=== PATIENT | female | born 1990 | race Caucasian/White ===

== ENCOUNTER 2025-01-22 09:18 | Inpatient (IN) ==
[2025-01-22] MEDS ORDERED: SODIUM CHLORIDE 0.9% 100 ML IV PRN (09:59)
[2025-01-22] MEDS ORDERED: OXYTOCIN 30 UNITS/NSS 30 UNITS/500 ML BAG IV PRN (10:06)
[2025-01-22] MEDS ORDERED: LIDOCAINE 1% LOCAL 20 ML VIAL INFIL PRN (10:06)
--- NOTE | 2025-01-22 10:09 | Labor Progress Brief Note ---
Date of Service January 22, 2025 Subjective ROM at home at 0530 Ctx began at 0630 Was scheduled for IOL today, but presented in labor. Interested in epidural. Assessment & Plan (1) GBS carrier: Plan: PCN (2) Normal labor: Plan: Likely to need augmentation given ctx pattern. Epidural on request. Admission and Anticipated Discharge Date Admission Date: January 22, 2025 Physical Exam Genitourinary: /-2 LOF clear with vernix in it FHT Cat 1 [place] Q7 Results & Data Vital Signs (Past 12 Hours) Vital Signs Temp Pulse Resp BP 01/22/25 09:35 98.6 F 71 20 138/79 01/22/25 09:32 98.6 F 71 20 138/79 Coding Level of Care Code None Diagnoses GBS carrier Z22.330 Normal labor O80; Z37.9
[2025-01-22] MEDS: LACTATED RINGER'S 1,000 ML IV PRN (11:05)
[2025-01-22] MEDS: PENICILLIN GK 6 MU in DEXTROSE 5% 250 ML IV STA (11:07)
[2025-01-22 11:32] LABS: Hematocrit (blood only) 36.6 % (37.0-47.0); Hemoglobin 12.5 g/dl (12.0-16.0); Mean Corpuscular Hemoglobin 29.3 pg (25.0-34.0); Mean Corpuscular Volume 85.9 fL (80.0-100.0); Platelet Count 227 K/uL (130-400); RDW Standard Deviation 38.5 fL (36.4-46.3); Red Blood Count 4.26 M/uL (4.20-5.40); White Blood Count 9.02 K/ul (4.8-10.8)
[2025-01-22] MEDS ORDERED: NALOXONE HCL 0.4 MG/1 ML VIAL/CARP IV PRN ×2 (12:01→22:51)
[2025-01-22] MEDS ORDERED: LIDOCAINE 2% MPF LOCAL 5 ML VIAL EPI PRN (12:01)
[2025-01-22] MEDS ORDERED: NALOXONE HCL 1 MG in SODIUM CHLORIDE 0.9% 1,000 ML IV PRN ×2 (12:01→22:51)
[2025-01-22] MEDS ORDERED: diphenhydrAMINE 50 MG/ML VIAL IV PRN ×2 (12:01→22:51)
[2025-01-22] MEDS ORDERED: ONDANSETRON INJ 2 MG/ML 2 ML VIAL IV PRN ×2 (12:01→22:51)
[2025-01-22] MEDS ORDERED: ROPIVACAINE 0.5% PF 5 MG/ML 20 ML VIAL EPI PRN (12:01)
[2025-01-22] MEDS ORDERED: NALBUPHINE HCL INJ 10 MG/ML AMP IV PRN ×2 (12:01→22:51)
[2025-01-22] MEDS ORDERED: SODIUM CHLORIDE 0.9% PF INJ 10 ML VIAL EPI PRN (12:01)
[2025-01-22] MEDS: fentANYL 2 MCG/ML BUPIVacaine 0.125%-NSS 100ML BAG EPI PRN (12:15)
[2025-01-22] MEDS: BUPIVACAINE 0.25% PF 30 ML VIAL EPI PRN (12:16)
[2025-01-22] MEDS: LIDOCAINE 2%/EPINEPHRINE 1:200,000 20 ML PF EPI STA (12:16)
--- NOTE | 2025-01-22 12:16 | Anesthesiology Consultation ---
Date of Service January 22, 2025 Assessment & Plan (1) Encounter for pre-operative examination: Chart Review Chart Review: Patient NOT seen in Pre Admission Testing and Acceptable Risk for Labor Epidural Consults Requested none History Height/Weight Height: 5 ft 2 in Weight: 89.358 kg Allergies Allergy/AdvReac Type Severity Reaction Status Date / Time No Known Allergies Allergy Verified 01/21/25 10:53 Medications Home Medications Medication Instructions Recorded Confirmed Last Taken citalopram 20 mg tablet 20 mg PO DAILY 01/22/25 01/22/25 01/21/25 22:30 ferrous sulfate 325 mg (65 mg 325 mg PO Q OTHER DAY 01/22/25 01/22/25 01/20/25 22:30 iron) tablet (iron) vit no.95-ferrous 1 tab PO DAILY 01/22/25 01/22/25 01/21/25 22:30 fumarate 28 mg-folic acid 800 mcg tablet () Active Medications Generic Name Dose Route Start Last Admin Trade Name Freq PRN Reason Stop Dose Admin Fentanyl/Bupivacaine/Sodium Chlor 100 ml 01/22/25 12:01 01/22/25 12:15 Fentanyl 2 Mcg/Ml Bupivacaine 0.125%-Nss 100ml Bag EPI 01/23/25 12:00 100 ml PRN PRN Administration Pain R/T Labor Protocol Lactated Ringer's 1,000 mls @ 125 mls/hr 01/22/25 10:06 01/22/25 11:45 Lr IV 01/24/25 10:05 999 mls/hr .Q8H PRN Infusion L&D Protocol Protocol Past Medical History Medical History Chlamydia Past Family History Family History Grandmother (Maternal) Breast cancer Other Dyslipidemia Endometriosis Gestational diabetes Twin Denies family history of Ovarian cancer Prostate cancer Colorectal cancer Past Surgical History Surgical History S/P wisdom tooth extraction Social History Smoking Status: Never smoker Do You Dip or Chew Tobacco: No Hx Alcohol Use: No Hx Substance Use: No Physical Exam Vital Signs Last Vital Signs Temp 98.6 F 01/22/25 09:35 Pulse 92 H 01/22/25 12:13 Resp 20 01/22/25 09:35 BP 107/71 01/22/25 12:13 Pulse Ox 100 01/22/25 12:13 Testing Laboratory Results 01/22/25 11:11 Blood Type O Positive 01/22/25 11:11 Antibody Screen NEGATIVE 01/22/25 11:11
[2025-01-22] MEDS: OXYTOCIN 30 UNITS/NSS 30 UNITS/500 ML BAG IV PRN (14:00)
[2025-01-22] MEDS: PENICILLIN GK 3 MU in DEXTROSE 5% 100 ML IV PRN (14:36)
[2025-01-22] MEDS: BUPIVACAINE 0.25% PF 30 ML VIAL EPI STA (17:47)
[2025-01-22] MEDS: SODIUM CHLORIDE 0.9% PF INJ 10 ML VIAL EPI STA (17:47)
[2025-01-22] MEDS ORDERED: NURSING L&D Epidural Breakthrough Pain Update ONE (18:50)
[2025-01-22] MEDS ORDERED: LIDOCAINE 2%/EPINEPHRINE 1:200,000 20 ML PF ONE (19:22)
[2025-01-22] MEDS ORDERED: ROPIVACAINE 0.5% 5 MG/ML 30 ML VIAL ONE (19:22)
--- NOTE | 2025-01-22 19:27 | Anesthesia Procedure Note ---
Date of Service January 22, 2025 Anesthesia Epidural Re-Dose Vital Signs Temp Pulse Resp BP Pulse Ox 37.2 C 102 H 16 132/74 100 01/22/25 19:10 01/22/25 19:28 01/22/25 19:10 01/22/25 19:28 01/22/25 19:24 Notes Pain Intensity: 4 Dilatation (cm): 5.0 Effacement (%): 100 Called by nursing to evaluate epidural as the patient is having increased pain. The epidural was re-dosed with the following medications (all medications via epidural route) after negative aspiration of the epidural catheter for CSF/HEME 1.2% lidocaine and 0.2% ropivacaine 6ml After Epidural Re-Dose Mental Status: alert / awake / arousable Pain: improving with treatment Airway Patency, RR, SpO2: stable & adequate BP & HR: stable & adequate
[2025-01-22] MEDS ORDERED: LACTATED RINGER'S 1,000 ML IV SCH ×2 (21:45→23:16)
[2025-01-22] MEDS ORDERED: ACETAMINOPHEN 1000 MG/100 ML IV IV ONE (21:48)
[2025-01-22] MEDS ORDERED: AZITHROMYCIN 500 MG/255 ML BAG IV STA (21:51)
[2025-01-22] MEDS: ACETAMINOPHEN 1,000 MG/100 ML VIAL IV STA (21:53)
--- NOTE | 2025-01-22 21:53 | Labor Progress Brief Note ---
Date of Service January 22, 2025 Subjective Patient feeling a lot of pelvic pressure. Also feeling feverish/chills. Recent epidural bolus given due to the pressure, and hypotension resulted again which was treated. Since that point, tachycardia present to 170 baseline with mod billie +acc - dec, and toco Q3-4 despite pit @ 12. Maternal temp has elevated to 37.7 as well. I was notified of all the above by RN and came to the room to evaluate. Assessment & Plan (1) Failure of descent in labor, delivered, current hospitalization: Plan: Patient has no cervical dilation since last exam, and in fact is developing significant swelling of soft tissue suggesting CPD. She is also developing likely chorioamnionitis with elevation in maternal temp and tachycardia. After advising the patient of these new developments, we discussed options and agree the safest course of action is to proceed to section. Will administer 1g IV tylenol pre-op along with the ancef and azithromycin. If fever is documented postop we will treat with abx for 24hr, but often delivery is all that is needed to clear the nascent infection. Admission and Anticipated Discharge Date Admission Date: January 22, 2025 Physical Exam Genitourinary: 580/-1 with circumferential cervical sw elling and significant labial edema. This represents a "closing down" of the cervix compared to my own prior exam likely 2/2 edema. LOF clear [place] Q3-4 Results & Data Vital Signs (Past 12 Hours) Vital Signs Temp Pulse Resp BP Pulse Ox 01/22/25 21:44 100 01/22/25 21:44 102 H 01/22/25 21:40 88 L 01/22/25 21:40 102 H 01/22/25 21:40 111/70 01/22/25 21:39 100 01/22/25 21:39 97 H 01/22/25 21:34 100 01/22/25 21:34 103 H 01/22/25 21:29 100 01/22/25 21:29 105 H 01/22/25 21:26 99 H 01/22/25 21:26 103/55 L 01/22/25 21:24 100 01/22/25 21:24 97 H 01/22/25 21:19 100 01/22/25 21:19 93 H 01/22/25 21:15 93 01/22/25 21:15 102 H 01/22/25 21:14 94 01/22/25 21:14 101 H 01/22/25 21:12 90 01/22/25 21:12 109/58 L 01/22/25 21:09 99.9 F H 01/22/25 21:09 100 01/22/25 21:09 103 H 01/22/25 21:04 100 01/22/25 21:04 98 H 01/22/25 20:59 100 01/22/25 20:59 101 H 01/22/25 20:54 100 01/22/25 20:54 94 H 01/22/25 20:52 104 H 01/22/25 20:52 129/69 01/22/25 20:51 98.8 F 01/22/25 20:49 100 01/22/25 20:49 119 H 01/22/25 20:45 100 H 01/22/25 20:45 112/70 01/22/25 20:44 100 01/22/25 20:44 115 H 01/22/25 20:41 96 H 01/22/25 20:41 117/72 01/22/25 20:39 100 01/22/25 20:39 94 H 01/22/25 20:35 100 H 01/22/25 20:35 108/70 01/22/25 20:34 100 01/22/25 20:34 104 H 01/22/25 20:30 96 H 01/22/25 20:30 114/66 01/22/25 20:29 100 01/22/25 20:29 98 H 01/22/25 20:26 99 H 01/22/25 20:26 111/69 01/22/25 20:24 100 01/22/25 20:24 99 H 01/22/25 20:22 102 H 01/22/25 20:22 107/69 01/22/25 20:19 100 01/22/25 20:19 107 H 01/22/25 20:18 93 01/22/25 20:18 110 H 01/22/25 20:15 87 01/22/25 20:15 97/55 L 01/22/25 20:14 100 01/22/25 20:14 90 01/22/25 20:12 91 H 01/22/25 20:12 98/56 L 01/22/25 20:12 92 01/22/25 20:12 91 H 01/22/25 20:09 100 01/22/25 20:09 99 H 01/22/25 20:06 104 H 01/22/25 20:06 106/60 01/22/25 20:04 97 01/22/25 20:04 107 H 01/22/25 20:03 94 01/22/25 20:03 117 H 01/22/25 20:00 100 H 01/22/25 20:00 111/61 01/22/25 19:59 100 01/22/25 19:59 104 H 01/22/25 19:57 91 01/22/25 19:57 114 H 01/22/25 19:57 106 H 01/22/25 19:57 82/49 L 01/22/25 19:54 90 01/22/25 19:54 114 H 01/22/25 19:52 106 H 01/22/25 19:52 98/51 L 01/22/25 19:51 90 01/22/25 19:51 100 H 01/22/25 19:51 99/58 L 01/22/25 19:49 100 01/22/25 19:49 115 H 01/22/25 19:46 98 H 01/22/25 19:46 102/54 L 01/22/25 19:44 100 01/22/25 19:44 93 H 01/22/25 19:40 86 01/22/25 19:40 91/52 L 01/22/25 19:39 100 01/22/25 19:39 81 01/22/25 19:36 76 01/22/25 19:36 80/46 L 01/22/25 19:34 100 01/22/25 19:34 112 H 01/22/25 19:34 86/49 L 01/22/25 19:33 113 H 01/22/25 19:33 123/56 L 01/22/25 19:31 88 L 01/22/25 19:31 115 H 01/22/25 19:29 100 01/22/25 19:29 112 H 01/22/25 19:28 102 H 01/22/25 19:28 132/74 01/22/25 19:24 100 01/22/25 19:24 94 H 01/22/25 19:19 100 01/22/25 19:19 91 H 01/22/25 19:16 90 01/22/25 19:16 125/77 01/22/25 19:14 100 01/22/25 19:14 103 H 01/22/25 19:10 16 01/22/25 19:10 99.0 F 16 01/22/25 19:09 100 01/22/25 19:09 85 01/22/25 19:04 100 01/22/25 19:04 90 01/22/25 19:03 83 01/22/25 19:03 121/67 01/22/25 19:01 92 01/22/25 19:01 93 H 01/22/25 18:59 100 01/22/25 18:59 89 01/22/25 18:54 100 01/22/25 18:54 81 01/22/25 18:49 100 01/22/25 18:49 87 01/22/25 18:48 86 01/22/25 18:48 137/73 01/22/25 18:44 97 01/22/25 18:44 100 H 01/22/25 18:43 93 01/22/25 18:43 95 H 01/22/25 18:39 100 01/22/25 18:39 85 01/22/25 18:34 100 01/22/25 18:34 90 01/22/25 18:33 93 H 01/22/25 18:33 122/70 01/22/25 18:29 100 01/22/25 18:29 85 01/22/25 18:24 100 01/22/25 18:24 81 01/22/25 18:19 100 01/22/25 18:19 81 01/22/25 18:17 84 01/22/25 18:17 121/73 01/22/25 18:14 100 01/22/25 18:14 82 01/22/25 18:09 100 01/22/25 18:09 78 01/22/25 18:04 100 01/22/25 18:04 87 01/22/25 18:03 77 01/22/25 18:03 118/76 01/22/25 17:59 100 01/22/25 17:59 82 01/22/25 17:54 100 01/22/25 17:54 74 01/22/25 17:49 100 01/22/25 17:49 93 H 01/22/25 17:47 75 01/22/25 17:47 127/76 01/22/25 17:44 99 01/22/25 17:44 81 01/22/25 17:39 100 01/22/25 17:39 78 01/22/25 17:37 93 01/22/25 17:37 99 H 01/22/25 17:34 100 01/22/25 17:34 82 01/22/25 17:33 75 01/22/25 17:33 117/65 01/22/25 17:29 100 01/22/25 17:29 71 01/22/25 17:24 100 01/22/25 17:24 75 01/22/25 17:19 100 01/22/25 17:19 77 01/22/25 17:18 75 01/22/25 17:18 118/60 01/22/25 17:14 100 01/22/25 17:14 81 01/22/25 17:09 100 01/22/25 17:09 77 01/22/25 17:04 100 01/22/25 17:04 79 01/22/25 17:02 76 01/22/25 17:02 111/65 01/22/25 17:00 20 01/22/25 17:00 98.4 F 20 01/22/25 16:59 100 01/22/25 16:59 76 01/22/25 16:54 100 01/22/25 16:54 77 01/22/25 16:49 100 01/22/25 16:49 71 01/22/25 16:48 77 01/22/25 16:48 119/67 01/22/25 16:44 100 01/22/25 16:44 72 01/22/25 16:39 100 01/22/25 16:39 93 H 01/22/25 16:34 100 01/22/25 16:34 74 01/22/25 16:34 80 01/22/25 16:34 116/67 01/22/25 16:29 100 01/22/25 16:29 71 01/22/25 16:24 100 01/22/25 16:24 73 01/22/25 16:19 100 01/22/25 16:19 77 01/22/25 16:17 90 01/22/25 16:17 72 01/22/25 16:17 117/64 01/22/25 16:14 100 01/22/25 16:14 81 01/22/25 16:09 100 01/22/25 16:09 74 01/22/25 16:04 100 01/22/25 16:04 79 01/22/25 16:04 78 01/22/25 16:04 114/67 01/22/25 16:03 91 01/22/25 16:03 85 01/22/25 15:59 100 01/22/25 15:59 75 01/22/25 15:54 100 01/22/25 15:54 78 01/22/25 15:49 99 01/22/25 15:49 75 01/22/25 15:48 68 01/22/25 15:48 107/63 01/22/25 15:44 99 01/22/25 15:44 69 01/22/25 15:41 92 01/22/25 15:41 75 01/22/25 15:39 94 01/22/25 15:39 89 01/22/25 15:34 100 01/22/25 15:34 78 01/22/25 15:32 84 01/22/25 15:32 119/72 01/22/25 15:29 100 01/22/25 15:29 85 01/22/25 15:24 99 01/22/25 15:24 73 01/22/25 15:19 99 01/22/25 15:19 79 01/22/25 15:18 75 01/22/25 15:18 107/68 01/22/25 15:14 99 01/22/25 15:14 70 01/22/25 15:09 99 01/22/25 15:09 75 01/22/25 15:04 99 01/22/25 15:04 85 01/22/25 15:02 79 01/22/25 15:02 104/66 01/22/25 14:59 99 01/22/25 14:59 77 01/22/25 14:54 99 01/22/25 14:54 81 01/22/25 14:49 99 01/22/25 14:49 78 01/22/25 14:46 73 01/22/25 14:46 101/63 01/22/25 14:44 97 01/22/25 14:44 83 01/22/25 14:39 98 01/22/25 14:39 91 H 01/22/25 14:34 99 01/22/25 14:34 79 01/22/25 14:31 86 01/22/25 14:31 111/76 01/22/25 14:29 98 01/22/25 14:29 89 01/22/25 14:24 100 01/22/25 14:24 84 01/22/25 14:19 100 01/22/25 14:19 88 01/22/25 14:16 80 01/22/25 14:16 113/72 01/22/25 14:14 100 01/22/25 14:14 89 01/22/25 14:09 100 01/22/25 14:09 92 H 01/22/25 14:04 98 01/22/25 14:04 82 01/22/25 14:02 85 01/22/25 14:02 109/74 01/22/25 13:59 99 01/22/25 13:59 83 01/22/25 13:54 100 01/22/25 13:54 93 H 01/22/25 13:49 100 01/22/25 13:49 97 H 01/22/25 13:47 81 01/22/25 13:47 113/68 01/22/25 13:44 99 01/22/25 13:44 94 H 01/22/25 13:39 97 01/22/25 13:39 90 01/22/25 13:37 91 01/22/25 13:37 96 H 01/22/25 13:34 100 01/22/25 13:34 91 H 01/22/25 13:33 83 01/22/25 13:33 112/67 01/22/25 13:30 98.6 F 01/22/25 13:29 99 01/22/25 13:29 89 01/22/25 13:24 99 01/22/25 13:24 89 01/22/25 13:19 99 01/22/25 13:19 84 01/22/25 13:17 88 01/22/25 13:17 113/71 01/22/25 13:14 99 01/22/25 13:14 87 01/22/25 13:09 100 01/22/25 13:09 83 01/22/25 13:04 100 01/22/25 13:04 82 01/22/25 13:00 80 01/22/25 13:00 114/68 01/22/25 12:59 100 01/22/25 12:59 81 01/22/25 12:55 82 01/22/25 12:55 119/71 01/22/25 12:54 100 01/22/25 12:54 88 01/22/25 12:51 90 01/22/25 12:51 93 H 01/22/25 12:50 86 01/22/25 12:50 108/68 01/22/25 12:49 100 01/22/25 12:49 91 H 01/22/25 12:45 86 01/22/25 12:45 117/68 01/22/25 12:44 100 01/22/25 12:44 85 01/22/25 12:40 91 H 01/22/25 12:40 110/70 01/22/25 12:39 100 01/22/25 12:39 94 H 01/22/25 12:34 100 01/22/25 12:34 105 H 01/22/25 12:34 119/59 L 01/22/25 12:33 88 L 01/22/25 12:33 106 H 01/22/25 12:30 120 H 01/22/25 12:30 164/56 H 01/22/25 12:28 92 01/22/25 12:28 111 H 01/22/25 12:26 121 H 01/22/25 12:26 146/63 H 01/22/25 12:23 98 01/22/25 12:23 98 H 01/22/25 12:22 87/55 L 01/22/25 12:21 88 L 01/22/25 12:21 91 H 01/22/25 12:20 89 01/22/25 12:20 96/52 L 01/22/25 12:18 100 01/22/25 12:18 101 H 01/22/25 12:18 96 H 01/22/25 12:18 100/55 L 01/22/25 12:17 92 H 01/22/25 12:17 92/50 L 01/22/25 12:15 96 H 01/22/25 12:15 102/59 L 01/22/25 12:13 100 01/22/25 12:13 92 H 01/22/25 12:13 99 H 01/22/25 12:13 107/71 01/22/25 12:09 83 01/22/25 12:09 121/73 01/22/25 12:08 99 01/22/25 12:08 82 01/22/25 12:07 88 L 01/22/25 12:07 90 01/22/25 12:03 97 01/22/25 12:03 85 01/22/25 12:01 93 01/22/25 12:01 96 H 01/22/25 11:58 100 01/22/25 11:58 80 01/22/25 11:58 136/79 01/22/25 11:53 100 01/22/25 11:53 77 01/22/25 11:48 100 01/22/25 11:48 72 01/22/25 11:30 98.8 F 01/22/25 11:10 67 01/22/25 11:10 133/85 Coding Level of Care Code None Diagnoses Failure of descent in labor, delivered, current hospitalization O62.2
[2025-01-22] MEDS ORDERED: DEXAMETHASONE SOD INJ 4 MG/ML VIAL ONE (21:54)
[2025-01-22] MEDS ORDERED: OXYTOCIN 10 UNITS/ML VIAL ONE (21:54)
[2025-01-22] MEDS ORDERED: ONDANSETRON INJ 2 MG/ML 2 ML VIAL ONE (21:54)
[2025-01-22] MEDS ORDERED: METOCLOPRAMIDE HCL INJ 5 MG/ML 2 ML VIAL ONE (21:54)
[2025-01-22] MEDS: CITRIC ACID/SODIUM CITRATE 15 ML UDC PO STA (22:00)
[2025-01-22] MEDS: ceFAZolin 3000MG 3,000 MG/72.5 ML BAG IV STA (22:03)
[2025-01-22] MEDS ORDERED: MoRPHine SULFATE PF 1 MG/ML 10 ML AMP/VIAL ONE (22:25)
[2025-01-22] MEDS ORDERED: SODIUM CHLORIDE 0.9% PF INJ 10 ML VIAL ONE (22:40)
[2025-01-22] MEDS ORDERED: MoRPHine SULFATE PF 1 MG/ML 10 ML AMP/VIAL EPI ONE (22:51)
[2025-01-22] MEDS ORDERED: LACTATED RINGER'S 500 ML IV PRN (22:51)
[2025-01-22] MEDS ORDERED: PROMETHAZINE 6.25 MG/50.25 ML BAG IV PRN (22:51)
[2025-01-22] MEDS ORDERED: MoRPHine SULFATE 2 MG/ML CARP IV PRN (22:51)
[2025-01-22] MEDS ORDERED: DC INTRASPINAL MORPHINE SCH (23:00)
[2025-01-22] MEDS ORDERED: NO NARCOTICS OR SEDATIVES SCH (23:00)
[2025-01-22] MEDS ORDERED: SODIUM CHLORIDE 0.9% 1,000 ML IV SCH (23:00)
--- NOTE | 2025-01-22 23:03 | Operative Report ---
PG Post Operative Report Pre & Post Diagnosis Operation Date: 01/22/25 22:00 Pre-Op Diagnosis: 1. Failure to descend 2. Chorioamnionitis 3. SIUP @ 39w1d 4. Induction of Labor Post-Op Diagnosis: 1. Same 2. Delivery of live male child at 2228 I identified the patient and participated in the time-out.: Yes Procedure Operation Date: 01/22/25 22:00 Actual Procedures Primary Low Transverse Section Surgeon Tonia Marsh MD Test Lead Mckenna Arambula RN Estimated Blood Loss 628 Findings Consistent with Post-Op Diagnosis Specimens placenta, cord blood Anesthesia Type L&D Only Epidural Exists Complications none Disposition Accompanied Patient To Recovery: Yes Disposition: L&D Description of Procedure The patient was placed operating table in the supine position with a leftward tilt. She was prepped and draped in standard sterile fashion. The anesthetic was tested and found to be adequate. A time-out was held, identifying correct patient, procedure, positioning and preoperative antibiotics. There were no concerns. A Pfannenstiel skin incision was made with a knife and taken down to the underlying layer of fascia. The fascia was incised in the midline with the knife and taken out laterally with scissors. The superior edge of the fascial incision was grasped, elevated and dissected off the underlying rectus both superiorly and inferiorly. The muscles were bluntly in the midline. The peritoneum was entered bluntly. The incision was then stretched. The bladder retractor was placed. The vesicouterine peritoneum was identified, entered with scissors and taken out laterally with scissors. The bladder flap was created digitally. A hysterotomy incision was created transversely in the lower uterine segment, final entry being accomplished in a blunt manner with the recycling operator's fingers. Clear amniotic fluid was encountered. The recycling operator's hand was used to elevate the head to the hysterotomy. The head was delivered using mild fundal pressure, and the shoulders and body followed without difficulty. The cord was clamped and cut and the infant was then handed off to the awaiting assistant professor of communication. Cord blood was obtained. The placenta was Manually extracted. The uterus was exteriorized and cleared of all clot and debris with moistened laparotomy sponges. The hysterotomy incision was repaired in two layers, the first in a running locked layer, the second in an imbricating layer. The ovaries and tubes were seen to be normal bilaterally. The uterus was gently replaced in the abdomen, and the gutters were cleared of clot and debris. A final inspection of the hysterotomy revealed good hemostasis. The rectus muscles were allowed to reapproximate naturally. The fascia was then reapproximated with 1 Vicryl in a running nonlocked manner. The fascia was examined and found to be free of defect following closure. The subcutaneous tissue was copiously irrigated and reapproximated with 0-chromic, then the skin edges were closed with 4-0 monocryl in a subcuticular fashion. A dermabond dressing was applied. The de leon was found to be draining clear yellow urine at completion of the procedure. I attest to the content of the Intraoperative Record and any orders documented therein. Any exceptions are noted below. I attest to the content of the Intraoperative Record and any orders documented therein. Any exceptions are noted below. OB Procedure Charges 05085
--- NOTE | 2025-01-22 23:07 | Anesthesia Procedure Note ---
Date of Service January 22, 2025 Anesthesia Post Epidural Note Vital Signs Vital Signs: Temp Pulse Resp BP Pulse Ox 37.7 C H 118 H 16 117/66 100 01/22/25 21:09 01/22/25 22:09 01/22/25 19:10 01/22/25 22:09 01/22/25 22:09 Pain Intensity Bilateral Abdomen: Pain Intensity: 1 Notes Mental Status: alert / awake / arousable and participated in evaluation Nausea / Vomiting: adequately controlled Pain: adequately controlled Airway Patency, RR, SpO2: stable & adequate BP & HR: stable & adequate Hydration State: stable & adequate Neuraxial Anesthesia: was administered and sensory block is resolving Anesthetic Complications: no major complications apparent Epidural: Removed without complications and With tip intact
[2025-01-22] MEDS ORDERED: DIPHTHER/TETAN/PERTUS Vaccine (Tdap, Adol/Adult) 0.5mL IM ONE (23:16)
[2025-01-22] MEDS ORDERED: SENNA 8.6 MG TAB PO PRN (23:16)
[2025-01-22] MEDS ORDERED: BENZOCAINE 20% SPRY 85 APPLN/85 GM CAN EXT PRN (23:16)
[2025-01-22] MEDS ORDERED: CALCIUM CARBONATE 500 MG CHEWABLE TAB PO PRN (23:16)
[2025-01-22] MEDS ORDERED: MAGNESIUM HYDROXIDE SUSP 30 ML UDC PO PRN (23:16)
[2025-01-22] MEDS ORDERED: HYDROCORTISONE ACETATE 25 MG SUPP PR PRN (23:16)
[2025-01-22] MEDS: KETOROLAC 30 MG/ML VIAL ONE (23:44)
[2025-01-23] MEDS: CITALOPRAM 20 MG TAB PO SCH ×2 (00:25→21:41)
[2025-01-23] MEDS: OXYTOCIN 20 UNITS/LR 1,002 ML IV SCH (05:13)
--- NOTE | 2025-01-23 05:16 | Anesthesiology Progress Note ---
Date of Service January 23, 2025 Anesthesia Post Procedure Vital Signs Vital Signs: Temp Pulse Pulse Resp BP BP Pulse Ox 01/23/25 01:55 37 C 83 16 122/76 96 01/23/25 01:29 82 115/65 01/23/25 01:25 87 97 01/23/25 01:20 90 97 01/23/25 01:15 99 H 95 01/23/25 01:14 91 H 109/63 01/23/25 01:10 85 96 01/23/25 01:05 101 H 96 01/23/25 01:00 98 H 96 01/23/25 00:59 86 105/57 L 01/23/25 00:55 92 H 96 01/23/25 00:50 86 96 01/23/25 00:45 86 96 01/23/25 00:44 87 111/62 01/23/25 00:40 101 H 96 01/23/25 00:35 105 H 95 01/23/25 00:34 105 H 94 01/23/25 00:30 103 H 95 01/23/25 00:29 121/70 01/23/25 00:26 101 H 94 01/23/25 00:25 90 95 01/23/25 00:20 98 H 96 01/23/25 00:15 91 H 95 01/23/25 00:13 94 H 93 01/23/25 00:10 93 H 96 01/23/25 00:07 99 H 125/58 L 01/23/25 00:06 110 H 94 01/23/25 00:05 104 H 95 01/23/25 00:00 91 H 95 01/22/25 23:57 95 H 01/22/25 23:57 114/57 L 01/22/25 23:55 95 01/22/25 23:55 89 01/22/25 23:50 97 01/22/25 23:50 96 H 01/22/25 23:49 94 01/22/25 23:49 102 H 01/22/25 23:47 106 H 01/22/25 23:47 114/55 L 01/22/25 23:45 95 01/22/25 23:45 100 H 01/22/25 23:40 95 01/22/25 23:40 105 H 01/22/25 23:37 94 01/22/25 23:37 106 H 07/31/25 23:37 120/58 L 01/22/25 23:35 97 01/22/25 23:35 103 H 01/22/25 23:30 96 01/22/25 23:30 98 H 01/22/25 23:25 97 01/22/25 23:25 99 H 01/22/25 23:20 98 01/22/25 23:20 103 H 01/22/25 23:16 105 H 01/22/25 23:16 114/55 L 01/22/25 23:15 99 01/22/25 23:15 109 H 01/22/25 23:10 99 01/22/25 23:10 111 H 01/22/25 23:07 102 H 01/22/25 23:07 118/60 01/22/25 23:05 99 01/22/25 23:05 107 H 01/22/25 22:09 100 01/22/25 22:09 118 H 01/22/25 22:09 117/66 01/22/25 22:07 91 01/22/25 22:07 107 H 01/22/25 22:04 100 01/22/25 22:04 113 H 01/22/25 22:03 118 H 01/22/25 22:03 142/85 H 01/22/25 22:02 91 01/22/25 22:02 113 H 01/22/25 22:00 97 H 01/22/25 22:00 140/72 01/22/25 21:59 100 01/22/25 21:59 105 H 01/22/25 21:57 102 H 01/22/25 21:57 139/71 01/22/25 21:54 97 01/22/25 21:54 105 H 01/22/25 21:49 100 01/22/25 21:49 96 H 01/22/25 21:44 100 01/22/25 21:44 102 H 01/22/25 21:40 88 L 01/22/25 21:40 102 H 01/22/25 21:40 111/70 01/22/25 21:39 100 01/22/25 21:39 97 H 01/22/25 21:34 100 01/22/25 21:34 103 H 01/22/25 21:29 100 01/22/25 21:29 105 H 01/22/25 21:26 99 H 01/22/25 21:26 103/55 L 01/22/25 21:24 100 01/22/25 21:24 97 H 01/22/25 21:19 100 01/22/25 21:19 93 H 01/22/25 21:15 93 01/22/25 21:15 102 H 01/22/25 21:14 94 01/22/25 21:14 101 H 01/22/25 21:12 90 01/22/25 21:12 109/58 L 01/22/25 21:09 37.7 C H 01/22/25 21:09 100 01/22/25 21:09 103 H 01/22/25 21:04 100 01/22/25 21:04 98 H 01/22/25 20:59 100 01/22/25 20:59 101 H 01/22/25 20:54 100 01/22/25 20:54 94 H 01/22/25 20:52 104 H 01/22/25 20:52 129/69 01/22/25 20:51 37.1 C 01/22/25 20:49 100 01/22/25 20:49 119 H 01/22/25 20:45 100 H 01/22/25 20:45 112/70 01/22/25 20:44 100 01/22/25 20:44 115 H 01/22/25 20:41 96 H 01/22/25 20:41 117/72 01/22/25 20:39 100 01/22/25 20:39 94 H 01/22/25 20:35 100 H 01/22/25 20:35 108/70 01/22/25 20:34 100 01/22/25 20:34 104 H 01/22/25 20:30 96 H 01/22/25 20:30 114/66 01/22/25 20:29 100 01/22/25 20:29 98 H 01/22/25 20:26 99 H 01/22/25 20:26 111/69 01/22/25 20:24 100 01/22/25 20:24 99 H 01/22/25 20:22 102 H 01/22/25 20:22 107/69 01/22/25 20:19 100 01/22/25 20:19 107 H 01/22/25 20:18 93 01/22/25 20:18 110 H 01/22/25 20:15 87 01/22/25 20:15 97/55 L 01/22/25 20:14 100 01/22/25 20:14 90 01/22/25 20:12 91 H 01/22/25 20:12 98/56 L 01/22/25 20:12 92 01/22/25 20:12 91 H 01/22/25 20:09 100 01/22/25 20:09 99 H 01/22/25 20:06 104 H 01/22/25 20:06 106/60 01/22/25 20:04 97 01/22/25 20:04 107 H 01/22/25 20:03 94 01/22/25 20:03 117 H 01/22/25 20:00 100 H 01/22/25 20:00 111/61 01/22/25 19:59 100 01/22/25 19:59 104 H 01/22/25 19:57 91 01/22/25 19:57 114 H 01/22/25 19:57 106 H 01/22/25 19:57 82/49 L 01/22/25 19:54 90 01/22/25 19:54 114 H 01/22/25 19:52 106 H 01/22/25 19:52 98/51 L 01/22/25 19:51 90 01/22/25 19:51 100 H 01/22/25 19:51 99/58 L 01/22/25 19:49 100 01/22/25 19:49 115 H 01/22/25 19:46 98 H 01/22/25 19:46 102/54 L 01/22/25 19:44 100 01/22/25 19:44 93 H 01/22/25 19:40 86 01/22/25 19:40 91/52 L 01/22/25 19:39 100 01/22/25 19:39 81 01/22/25 19:36 76 01/22/25 19:36 80/46 L 01/22/25 19:34 100 01/22/25 19:34 112 H 01/22/25 19:34 86/49 L 01/22/25 19:33 113 H 01/22/25 19:33 123/56 L 01/22/25 19:31 88 L 01/22/25 19:31 115 H 01/22/25 19:29 100 01/22/25 19:29 112 H 01/22/25 19:28 102 H 01/22/25 19:28 132/74 01/22/25 19:24 100 01/22/25 19:24 94 H 01/22/25 19:19 100 01/22/25 19:19 91 H 01/22/25 19:16 90 01/22/25 19:16 125/77 01/22/25 19:14 100 01/22/25 19:14 103 H 01/22/25 19:10 16 01/22/25 19:10 37.2 C 16 01/22/25 19:09 100 01/22/25 19:09 85 01/22/25 19:04 100 01/22/25 19:04 90 01/22/25 19:03 83 01/22/25 19:03 121/67 01/22/25 19:01 92 01/22/25 19:01 93 H 01/22/25 18:59 100 01/22/25 18:59 89 01/22/25 18:54 100 01/22/25 18:54 81 01/22/25 18:49 100 01/22/25 18:49 87 01/22/25 18:48 86 01/22/25 18:48 137/73 01/22/25 18:44 97 01/22/25 18:44 100 H 01/22/25 18:43 93 01/22/25 18:43 95 H 01/22/25 18:39 100 01/22/25 18:39 85 01/22/25 18:34 100 01/22/25 18:34 90 01/22/25 18:33 93 H 01/22/25 18:33 122/70 01/22/25 18:29 100 01/22/25 18:29 85 01/22/25 18:24 100 01/22/25 18:24 81 01/22/25 18:19 100 01/22/25 18:19 81 01/22/25 18:17 84 01/22/25 18:17 121/73 01/22/25 18:14 100 01/22/25 18:14 82 01/22/25 18:09 100 01/22/25 18:09 78 01/22/25 18:04 100 01/22/25 18:04 87 01/22/25 18:03 77 01/22/25 18:03 118/76 01/22/25 17:59 100 01/22/25 17:59 82 01/22/25 17:54 100 01/22/25 17:54 74 01/22/25 17:49 100 01/22/25 17:49 93 H 01/22/25 17:47 75 01/22/25 17:47 127/76 01/22/25 17:44 99 01/22/25 17:44 81 01/22/25 17:39 100 01/22/25 17:39 78 01/22/25 17:37 93 01/22/25 17:37 99 H 01/22/25 17:34 100 01/22/25 17:34 82 01/22/25 17:33 75 01/22/25 17:33 117/65 01/22/25 17:29 100 01/22/25 17:29 71 01/22/25 17:24 100 01/22/25 17:24 75 01/22/25 17:19 100 01/22/25 17:19 77 01/22/25 17:18 75 01/22/25 17:18 118/60 01/22/25 17:14 100 01/22/25 17:14 81 01/22/25 17:09 100 01/22/25 17:09 77 01/22/25 17:04 100 01/22/25 17:04 79 01/22/25 17:02 76 01/22/25 17:02 111/65 01/22/25 17:00 20 01/22/25 17:00 36.9 C 20 01/22/25 16:59 100 01/22/25 16:59 76 01/22/25 16:54 100 01/22/25 16:54 77 01/22/25 16:49 100 01/22/25 16:49 71 01/22/25 16:48 77 01/22/25 16:48 119/67 01/22/25 16:44 100 01/22/25 16:44 72 01/22/25 16:39 100 01/22/25 16:39 93 H 01/22/25 16:34 100 01/22/25 16:34 74 01/22/25 16:34 80 01/22/25 16:34 116/67 01/22/25 16:29 100 01/22/25 16:29 71 01/22/25 16:24 100 01/22/25 16:24 73 01/22/25 16:19 100 01/22/25 16:19 77 01/22/25 16:17 90 01/22/25 16:17 72 01/22/25 16:17 117/64 01/22/25 16:14 100 01/22/25 16:14 81 01/22/25 16:09 100 01/22/25 16:09 74 01/22/25 16:04 100 01/22/25 16:04 79 01/22/25 16:04 78 01/22/25 16:04 114/67 01/22/25 16:03 91 01/22/25 16:03 85 01/22/25 15:59 100 01/22/25 15:59 75 01/22/25 15:54 100 01/22/25 15:54 78 01/22/25 15:49 99 01/22/25 15:49 75 01/22/25 15:48 68 01/22/25 15:48 107/63 01/22/25 15:44 99 01/22/25 15:44 69 01/22/25 15:41 92 01/22/25 15:41 75 01/22/25 15:39 94 01/22/25 15:39 89 01/22/25 15:34 100 01/22/25 15:34 78 01/22/25 15:32 84 01/22/25 15:32 119/72 01/22/25 15:29 100 01/22/25 15:29 85 01/22/25 15:24 99 01/22/25 15:24 73 01/22/25 15:19 99 01/22/25 15:19 79 01/22/25 15:18 75 01/22/25 15:18 107/68 01/22/25 15:14 99 01/22/25 15:14 70 01/22/25 15:09 99 01/22/25 15:09 75 01/22/25 15:04 99 01/22/25 15:04 85 01/22/25 15:02 79 01/22/25 15:02 104/66 01/22/25 14:59 99 01/22/25 14:59 77 01/22/25 14:54 99 01/22/25 14:54 81 01/22/25 14:49 99 01/22/25 14:49 78 01/22/25 14:46 73 01/22/25 14:46 101/63 01/22/25 14:44 97 01/22/25 14:44 83 01/22/25 14:39 98 01/22/25 14:39 91 H 01/22/25 14:34 99 01/22/25 14:34 79 01/22/25 14:31 86 01/22/25 14:31 111/76 01/22/25 14:29 98 01/22/25 14:29 89 01/22/25 14:24 100 01/22/25 14:24 84 01/22/25 14:19 100 01/22/25 14:19 88 01/22/25 14:16 80 01/22/25 14:16 113/72 01/22/25 14:14 100 01/22/25 14:14 89 01/22/25 14:09 100 01/22/25 14:09 92 H 01/22/25 14:04 98 01/22/25 14:04 82 01/22/25 14:02 85 01/22/25 14:02 109/74 01/22/25 13:59 99 01/22/25 13:59 83 01/22/25 13:54 100 01/22/25 13:54 93 H 01/22/25 13:49 100 01/22/25 13:49 97 H 01/22/25 13:47 81 01/22/25 13:47 113/68 01/22/25 13:44 99 01/22/25 13:44 94 H 01/22/25 13:39 97 01/22/25 13:39 90 01/22/25 13:37 91 01/22/25 13:37 96 H 01/22/25 13:34 100 01/22/25 13:34 91 H 01/22/25 13:33 83 01/22/25 13:33 112/67 01/22/25 13:30 37.0 C 01/22/25 13:29 99 01/22/25 13:29 89 01/22/25 13:24 99 01/22/25 13:24 89 01/22/25 13:19 99 01/22/25 13:19 84 01/22/25 13:17 88 01/22/25 13:17 113/71 01/22/25 13:14 99 01/22/25 13:14 87 01/22/25 13:09 100 01/22/25 13:09 83 01/22/25 13:04 100 01/22/25 13:04 82 01/22/25 13:00 80 01/22/25 13:00 114/68 01/22/25 12:59 100 01/22/25 12:59 81 01/22/25 12:55 82 01/22/25 12:55 119/71 01/22/25 12:54 100 01/22/25 12:54 88 01/22/25 12:51 90 01/22/25 12:51 93 H 01/22/25 12:50 86 01/22/25 12:50 108/68 01/22/25 12:49 100 01/22/25 12:49 91 H 01/22/25 12:45 86 01/22/25 12:45 117/68 01/22/25 12:44 100 01/22/25 12:44 85 01/22/25 12:40 91 H 01/22/25 12:40 110/70 01/22/25 12:39 100 01/22/25 12:39 94 H 01/22/25 12:34 100 01/22/25 12:34 105 H 01/22/25 12:34 119/59 L 01/22/25 12:33 88 L 01/22/25 12:33 106 H 01/22/25 12:30 120 H 01/22/25 12:30 164/56 H 01/22/25 12:28 92 01/22/25 12:28 111 H 01/22/25 12:26 121 H 01/22/25 12:26 146/63 H 01/22/25 12:23 98 01/22/25 12:23 98 H 01/22/25 12:22 87/55 L 01/22/25 12:21 88 L 01/22/25 12:21 91 H 01/22/25 12:20 89 01/22/25 12:20 96/52 L 01/22/25 12:18 100 01/22/25 12:18 101 H 01/22/25 12:18 96 H 01/22/25 12:18 100/55 L 01/22/25 12:17 92 H 01/22/25 12:17 92/50 L 01/22/25 12:15 96 H 01/22/25 12:15 102/59 L 01/22/25 12:13 100 01/22/25 12:13 92 H 01/22/25 12:13 99 H 01/22/25 12:13 107/71 01/22/25 12:09 83 01/22/25 12:09 121/73 01/22/25 12:08 99 01/22/25 12:08 82 01/22/25 12:07 88 L 01/22/25 12:07 90 01/22/25 12:03 97 01/22/25 12:03 85 01/22/25 12:01 93 01/22/25 12:01 96 H 01/22/25 11:58 100 01/22/25 11:58 80 01/22/25 11:58 136/79 01/22/25 11:53 100 01/22/25 11:53 77 01/22/25 11:48 100 01/22/25 11:48 72 01/22/25 11:30 37.1 C 01/22/25 11:10 67 01/22/25 11:10 133/85 01/22/25 09:35 37.0 C 71 20 138/79 01/22/25 09:32 37.0 C 71 20 138/79 O2 Del Method 01/23/25 01:55 Room Air 01/23/25 01:29 01/23/25 01:25 01/23/25 01:20 01/23/25 01:15 01/23/25 01:14 01/23/25 01:10 01/23/25 01:05 01/23/25 01:00 01/23/25 00:59 01/23/25 00:55 01/23/25 00:50 01/23/25 00:45 01/23/25 00:44 01/23/25 00:40 01/23/25 00:35 01/23/25 00:34 01/23/25 00:30 01/23/25 00:29 01/23/25 00:26 01/23/25 00:25 01/23/25 00:20 01/23/25 00:15 01/23/25 00:13 01/23/25 00:10 01/23/25 00:07 01/23/25 00:06 01/23/25 00:05 01/23/25 00:00 01/22/25 23:57 01/22/25 23:57 01/22/25 23:55 01/22/25 23:55 01/22/25 23:50 01/22/25 23:50 01/22/25 23:49 01/22/25 23:49 01/22/25 23:47 01/22/25 23:47 01/22/25 23:45 01/22/25 23:45 01/22/25 23:40 01/22/25 23:40 01/22/25 23:37 01/22/25 23:37 01/22/25 23:37 01/22/25 23:35 01/22/25 23:35 01/22/25 23:30 01/22/25 23:30 01/22/25 23:25 01/22/25 23:25 01/22/25 23:20 01/22/25 23:20 01/22/25 23:16 01/22/25 23:16 01/22/25 23:15 01/22/25 23:15 01/22/25 23:10 01/22/25 23:10 01/22/25 23:07 01/22/25 23:07 01/22/25 23:05 01/22/25 23:05 01/22/25 22:09 01/22/25 22:09 01/22/25 22:09 01/22/25 22:07 01/22/25 22:07 01/22/25 22:04 01/22/25 22:04 01/22/25 22:03 01/22/25 22:03 01/22/25 22:02 01/22/25 22:02 01/22/25 22:00 01/22/25 22:00 01/22/25 21:59 01/22/25 21:59 01/22/25 21:57 01/22/25 21:57 01/22/25 21:54 01/22/25 21:54 01/22/25 21:49 01/22/25 21:49 01/22/25 21:44 01/22/25 21:44 01/22/25 21:40 01/22/25 21:40 01/22/25 21:40 01/22/25 21:39 01/22/25 21:39 01/22/25 21:34 01/22/25 21:34 01/22/25 21:29 01/22/25 21:29 01/22/25 21:26 01/22/25 21:26 01/22/25 21:24 01/22/25 21:24 01/22/25 21:19 01/22/25 21:19 01/22/25 21:15 01/22/25 21:15 01/22/25 21:14 01/22/25 21:14 01/22/25 21:12 01/22/25 21:12 01/22/25 21:09 01/22/25 21:09 01/22/25 21:09 01/22/25 21:04 01/22/25 21:04 01/22/25 20:59 01/22/25 20:59 01/22/25 20:54 01/22/25 20:54 01/22/25 20:52 01/22/25 20:52 01/22/25 20:51 01/22/25 20:49 01/22/25 20:49 01/22/25 20:45 01/22/25 20:45 01/22/25 20:44 01/22/25 20:44 01/22/25 20:41 01/22/25 20:41 01/22/25 20:39 01/22/25 20:39 01/22/25 20:35 01/22/25 20:35 01/22/25 20:34 01/22/25 20:34 01/22/25 20:30 01/22/25 20:30 01/22/25 20:29 01/22/25 20:29 01/22/25 20:26 01/22/25 20:26 01/22/25 20:24 01/22/25 20:24 01/22/25 20:22 01/22/25 20:22 01/22/25 20:19 01/22/25 20:19 01/22/25 20:18 01/22/25 20:18 01/22/25 20:15 01/22/25 20:15 01/22/25 20:14 01/22/25 20:14 01/22/25 20:12 01/22/25 20:12 01/22/25 20:12 01/22/25 20:12 01/22/25 20:09 01/22/25 20:09 01/22/25 20:06 01/22/25 20:06 01/22/25 20:04 01/22/25 20:04 01/22/25 20:03 01/22/25 20:03 01/22/25 20:00 01/22/25 20:00 01/22/25 19:59 01/22/25 19:59 01/22/25 19:57 01/22/25 19:57 01/22/25 19:57 01/22/25 19:57 01/22/25 19:54 01/22/25 19:54 01/22/25 19:52 01/22/25 19:52 01/22/25 19:51 01/22/25 19:51 01/22/25 19:51 01/22/25 19:49 01/22/25 19:49 01/22/25 19:46 01/22/25 19:46 01/22/25 19:44 01/22/25 19:44 01/22/25 19:40 01/22/25 19:40 01/22/25 19:39 01/22/25 19:39 01/22/25 19:36 01/22/25 19:36 01/22/25 19:34 01/22/25 19:34 01/22/25 19:34 01/22/25 19:33 01/22/25 19:33 01/22/25 19:31 01/22/25 19:31 01/22/25 19:29 01/22/25 19:29 01/22/25 19:28 01/22/25 19:28 01/22/25 19:24 01/22/25 19:24 01/22/25 19:19 01/22/25 19:19 01/22/25 19:16 01/22/25 19:16 01/22/25 19:14 01/22/25 19:14 01/22/25 19:10 01/22/25 19:10 01/22/25 19:09 01/22/25 19:09 01/22/25 19:04 01/22/25 19:04 01/22/25 19:03 01/22/25 19:03 01/22/25 19:01 01/22/25 19:01 01/22/25 18:59 01/22/25 18:59 01/22/25 18:54 01/22/25 18:54 01/22/25 18:49 01/22/25 18:49 01/22/25 18:48 01/22/25 18:48 01/22/25 18:44 01/22/25 18:44 01/22/25 18:43 01/22/25 18:43 01/22/25 18:39 01/22/25 18:39 01/22/25 18:34 01/22/25 18:34 01/22/25 18:33 01/22/25 18:33 01/22/25 18:29 01/22/25 18:29 01/22/25 18:24 01/22/25 18:24 01/22/25 18:19 01/22/25 18:19 01/22/25 18:17 01/22/25 18:17 01/22/25 18:14 01/22/25 18:14 01/22/25 18:09 01/22/25 18:09 01/22/25 18:04 01/22/25 18:04 01/22/25 18:03 01/22/25 18:03 01/22/25 17:59 01/22/25 17:59 01/22/25 17:54 01/22/25 17:54 01/22/25 17:49 01/22/25 17:49 01/22/25 17:47 01/22/25 17:47 01/22/25 17:44 01/22/25 17:44 01/22/25 17:39 01/22/25 17:39 01/22/25 17:37 01/22/25 17:37 01/22/25 17:34 01/22/25 17:34 01/22/25 17:33 01/22/25 17:33 01/22/25 17:29 01/22/25 17:29 01/22/25 17:24 01/22/25 17:24 01/22/25 17:19 01/22/25 17:19 01/22/25 17:18 01/22/25 17:18 01/22/25 17:14 01/22/25 17:14 01/22/25 17:09 01/22/25 17:09 01/22/25 17:04 01/22/25 17:04 01/22/25 17:02 01/22/25 17:02 01/22/25 17:00 01/22/25 17:00 01/22/25 16:59 01/22/25 16:59 01/22/25 16:54 01/22/25 16:54 01/22/25 16:49 01/22/25 16:49 01/22/25 16:48 01/22/25 16:48 01/22/25 16:44 01/22/25 16:44 01/22/25 16:39 01/22/25 16:39 01/22/25 16:34 01/22/25 16:34 01/22/25 16:34 01/22/25 16:34 01/22/25 16:29 01/22/25 16:29 01/22/25 16:24 01/22/25 16:24 01/22/25 16:19 01/22/25 16:19 01/22/25 16:17 01/22/25 16:17 01/22/25 16:17 01/22/25 16:14 01/22/25 16:14 01/22/25 16:09 01/22/25 16:09 01/22/25 16:04 01/22/25 16:04 01/22/25 16:04 01/22/25 16:04 01/22/25 16:03 01/22/25 16:03 01/22/25 15:59 01/22/25 15:59 01/22/25 15:54 01/22/25 15:54 01/22/25 15:49 01/22/25 15:49 01/22/25 15:48 01/22/25 15:48 01/22/25 15:44 01/22/25 15:44 01/22/25 15:41 01/22/25 15:41 01/22/25 15:39 01/22/25 15:39 01/22/25 15:34 01/22/25 15:34 01/22/25 15:32 01/22/25 15:32 01/22/25 15:29 01/22/25 15:29 01/22/25 15:24 01/22/25 15:24 01/22/25 15:19 01/22/25 15:19 01/22/25 15:18 01/22/25 15:18 01/22/25 15:14 01/22/25 15:14 01/22/25 15:09 01/22/25 15:09 01/22/25 15:04 01/22/25 15:04 01/22/25 15:02 01/22/25 15:02 01/22/25 14:59 01/22/25 14:59 01/22/25 14:54 01/22/25 14:54 01/22/25 14:49 01/22/25 14:49 01/22/25 14:46 01/22/25 14:46 01/22/25 14:44 01/22/25 14:44 01/22/25 14:39 01/22/25 14:39 01/22/25 14:34 01/22/25 14:34 01/22/25 14:31 01/22/25 14:31 01/22/25 14:29 01/22/25 14:29 01/22/25 14:01/22/25 14:01/22/25 14:19 01/22/25 14:19 01/22/25 14:16 01/22/25 14:16 01/22/25 14:14 01/22/25 14:14 01/22/25 14:09 01/22/25 14:09 01/22/25 14:04 01/22/25 14:04 01/22/25 14:02 01/22/25 14:02 01/22/25 13:59 01/22/25 13:59 01/22/25 13:54 01/22/25 13:54 01/22/25 13:49 01/22/25 13:49 01/22/25 13:47 01/22/25 13:47 01/22/25 13:44 01/22/25 13:44 01/22/25 13:39 01/22/25 13:39 01/22/25 13:37 01/22/25 13:37 01/22/25 13:34 01/22/25 13:34 01/22/25 13:33 01/22/25 13:33 01/22/25 13:30 01/22/25 13:29 01/22/25 13:29 01/22/25 13:24 01/22/25 13:24 01/22/25 13:19 01/22/25 13:19 01/22/25 13:17 01/22/25 13:17 01/22/25 13:14 01/22/25 13:14 01/22/25 13:09 01/22/25 13:09 01/22/25 13:04 01/22/25 13:04 01/22/25 13:00 01/22/25 13:00 01/22/25 12:59 01/22/25 12:59 01/22/25 12:55 01/22/25 12:55 01/22/25 12:54 01/22/25 12:54 01/22/25 12:51 01/22/25 12:51 01/22/25 12:50 01/22/25 12:50 01/22/25 12:49 01/22/25 12:49 01/22/25 12:45 01/22/25 12:45 01/22/25 12:44 01/22/25 12:44 01/22/25 12:40 01/22/25 12:40 01/22/25 12:39 01/22/25 12:39 01/22/25 12:34 01/22/25 12:34 01/22/25 12:34 01/22/25 12:33 01/22/25 12:33 01/22/25 12:30 01/22/25 12:30 01/22/25 12:28 01/22/25 12:28 01/22/25 12:26 01/22/25 12:26 01/22/25 12:23 01/22/25 12:23 01/22/25 12:22 01/22/25 12:21 01/22/25 12:21 01/22/25 12:20 01/22/25 12:20 01/22/25 12:18 01/22/25 12:18 01/22/25 12:18 01/22/25 12:18 01/22/25 12:17 01/22/25 12:17 01/22/25 12:15 01/22/25 12:15 01/22/25 12:13 01/22/25 12:13 01/22/25 12:13 01/22/25 12:13 01/22/25 12:09 01/22/25 12:09 01/22/25 12:08 01/22/25 12:08 01/22/25 12:07 01/22/25 12:07 01/22/25 12:03 01/22/25 12:03 01/22/25 12:01 01/22/25 12:01 01/22/25 11:58 01/22/25 11:58 01/22/25 11:58 01/22/25 11:53 01/22/25 11:53 01/22/25 11:48 01/22/25 11:48 01/22/25 11:30 01/22/25 11:10 01/22/25 11:10 01/22/25 09:35 01/22/25 09:32 Pain Intensity Bilateral Abdomen: Pain Intensity: 1 Transfer of Care Handoff Completed per policy Notes Mental Status: alert / awake / arousable Patient Amnestic to Procedure: Yes Nausea / Vomiting: adequately controlled Pain: adequately controlled Airway Patency, RR, SpO2: stable & adequate BP & HR: stable & adequate Hydration State: stable & adequate Anesthetic Complications: no major complications apparent
[2025-01-23] MEDS: KETOROLAC 30 MG/ML VIAL IV SCH (05:20)
[2025-01-23] MEDS: ACETAMINOPHEN 325 MG TAB PO SCH (05:21)
[2025-01-23 06:45] LABS: Hematocrit (blood only) 31.0 % (37.0-47.0); Hemoglobin 11.0 g/dl (12.0-16.0); Immature Granulocytes # (auto) 0.14 K/uL (0.01-0.20); Immature Granulocytes % (auto) 0.8 %; Mean Corpuscular Hemoglobin 30.4 pg (25.0-34.0); Mean Corpuscular Volume 85.6 fL (80.0-100.0); Platelet Count 204 K/uL (130-400); RDW Standard Deviation 38.2 fL (36.4-46.3); Red Blood Count 3.62 M/uL (4.20-5.40); White Blood Count 18.09 K/ul (4.8-10.8)
--- NOTE | 2025-01-23 07:06 | Obstetrical Progress Note ---
Date of Service January 23, 2025 Assessment & Plan (1) Failure of descent in labor, delivered, current hospitalization: POD#1 failure to progress/early chorio. Afebrile since delivery, recovering well. was quite large and CPD was surely playing a role. Patient for ambulation/TOV/shower today. Subjective Ambulation: limited ambulation Voiding: de leon catheter in place (de leon has been removed, no void yet) Passing Gas:: Yes Diet Tolerance:: regular diet (just cookies so far) Lochia:: Small Feeding Type:: breast feeding Physical Exam Constitutional WD/WN, vitals as above Eyes PERRL, conjunctivae normal, anicteric sclerae Neck normal visual inspection Respiratory normal respiratory effort and able to speak in complete sentences; no respiratory distress and no labored breathing Cardiovascular Rate/Rhythm: regular rate and regular rhythm Extremities: no edema Chest (Breasts) Chest: normal inspection of chest Gastrointestinal (Abdomen) Inspection/Auscultation: abdomen normal to inspection Soft, postgravid incision c/d/i Psychiatric A+Ox3, euthymic affect Genitourinary OB Exam Abdomen: + fundal height Fundus: + firm and + relation to umbilicus (fundus just below umbilicus); not tender Results & Data Vital Signs (Past 12 Hours) Vital Signs Temp Pulse Pulse Resp BP BP Pulse Ox 01/23/25 06:48 16 95 01/23/25 06:00 98.1 F 79 16 114/71 95 01/23/25 04:00 16 94 01/23/25 02:00 16 96 01/23/25 01:55 98.6 F 83 16 122/76 96 01/23/25 01:29 82 115/65 01/23/25 01:25 87 97 01/23/25 01:20 90 97 01/23/25 01:15 99 H 95 01/23/25 01:14 91 H 109/63 01/23/25 01:10 85 96 01/23/25 01:05 101 H 96 01/23/25 01:00 98 H 96 01/23/25 00:59 86 105/57 L 01/23/25 00:55 92 H 96 01/23/25 00:50 86 96 01/23/25 00:45 86 96 01/23/25 00:44 87 111/62 01/23/25 00:40 101 H 96 01/23/25 00:35 105 H 95 01/23/25 00:34 105 H 94 01/23/25 00:30 103 H 95 01/23/25 00:29 121/70 01/23/25 00:26 101 H 94 01/23/25 00:25 90 95 01/23/25 00:20 98 H 96 01/23/25 00:15 91 H 95 01/23/25 00:13 94 H 93 01/23/25 00:10 93 H 96 01/23/25 00:07 99 H 125/58 L 01/23/25 00:06 110 H 94 01/23/25 00:05 104 H 95 01/23/25 00:00 91 H 95 01/22/25 23:57 95 H 01/22/25 23:57 114/57 L 01/22/25 23:55 95 01/22/25 23:55 89 01/22/25 23:50 97 01/22/25 23:50 96 H 01/22/25 23:49 94 01/22/25 23:49 102 H 01/22/25 23:47 106 H 01/22/25 23:47 114/55 L 01/22/25 23:45 95 01/22/25 23:45 100 H 01/22/25 23:40 95 01/22/25 23:40 105 H 01/22/25 23:37 94 01/22/25 23:37 106 H 01/22/25 23:37 120/58 L 01/22/25 23:35 97 01/22/25 23:35 103 H 01/22/25 23:30 96 01/22/25 23:30 98 H 01/22/25 23:25 97 01/22/25 23:25 99 H 01/22/25 23:20 98 01/22/25 23:20 103 H 01/22/25 23:16 105 H 01/22/25 23:16 114/55 L 01/22/25 23:15 99 01/22/25 23:15 109 H 01/22/25 23:10 99 01/22/25 23:10 111 H 01/22/25 23:07 102 H 01/22/25 23:07 118/60 01/22/25 23:05 99 01/22/25 23:05 107 H 01/22/25 22:09 100 01/22/25 22:09 118 H 01/22/25 22:09 117/66 01/22/25 22:07 91 01/22/25 22:07 107 H 01/22/25 22:04 100 01/22/25 22:04 113 H 01/22/25 22:03 118 H 01/22/25 22:03 142/85 H 01/22/25 22:02 91 01/22/25 22:02 113 H 01/22/25 22:00 97 H 01/22/25 22:00 140/72 01/22/25 21:59 100 01/22/25 21:59 105 H 01/22/25 21:57 102 H 01/22/25 21:57 139/71 01/22/25 21:54 97 01/22/25 21:54 105 H 01/22/25 21:49 100 01/22/25 21:49 96 H 01/22/25 21:44 100 01/22/25 21:44 102 H 01/22/25 21:40 88 L 01/22/25 21:40 102 H 01/22/25 21:40 111/70 01/22/25 21:39 100 01/22/25 21:39 97 H 01/22/25 21:34 100 01/22/25 21:34 103 H 01/22/25 21:29 100 01/22/25 21:29 105 H 01/22/25 21:26 99 H 01/22/25 21:26 103/55 L 01/22/25 21:24 100 01/22/25 21:24 97 H 01/22/25 21:19 100 01/22/25 21:19 93 H 01/22/25 21:15 93 01/22/25 21:15 102 H 01/22/25 21:14 94 01/22/25 21:14 101 H 01/22/25 21:12 90 01/22/25 21:12 109/58 L 01/22/25 21:09 99.9 F H 01/22/25 21:09 100 01/22/25 21:09 103 H 01/22/25 21:04 100 01/22/25 21:04 98 H 01/22/25 20:59 100 07/31/25 20:59 101 H 01/22/25 20:54 100 01/22/25 20:54 94 H 01/22/25 20:52 104 H 01/22/25 20:52 129/69 01/22/25 20:51 98.8 F 01/22/25 20:49 100 01/22/25 20:49 119 H 01/22/25 20:45 100 H 01/22/25 20:45 112/70 01/22/25 20:44 100 01/22/25 20:44 115 H 01/22/25 20:41 96 H 01/22/25 20:41 117/72 01/22/25 20:39 100 01/22/25 20:39 94 H 01/22/25 20:35 100 H 01/22/25 20:35 108/70 01/22/25 20:34 100 01/22/25 20:34 104 H 01/22/25 20:30 96 H 01/22/25 20:30 114/66 01/22/25 20:29 100 01/22/25 20:29 98 H 01/22/25 20:26 99 H 01/22/25 20:26 111/69 01/22/25 20:24 100 01/22/25 20:24 99 H 01/22/25 20:22 102 H 01/22/25 20:22 107/69 01/22/25 20:19 100 01/22/25 20:19 107 H 01/22/25 20:18 93 01/22/25 20:18 110 H 01/22/25 20:15 87 01/22/25 20:15 97/55 L 01/22/25 20:14 100 01/22/25 20:14 90 01/22/25 20:12 91 H 01/22/25 20:12 98/56 L 01/22/25 20:12 92 01/22/25 20:12 91 H 01/22/25 20:09 100 01/22/25 20:09 99 H 01/22/25 20:06 104 H 01/22/25 20:06 106/60 01/22/25 20:04 97 01/22/25 20:04 107 H 01/22/25 20:03 94 01/22/25 20:03 117 H 01/22/25 20:00 100 H 01/22/25 20:00 111/61 01/22/25 19:59 100 01/22/25 19:59 104 H 01/22/25 19:57 91 01/22/25 19:57 114 H 01/22/25 19:57 106 H 01/22/25 19:57 82/49 L 01/22/25 19:54 90 01/22/25 19:54 114 H 01/22/25 19:52 106 H 01/22/25 19:52 98/51 L 01/22/25 19:51 90 01/22/25 19:51 100 H 01/22/25 19:51 99/58 L 01/22/25 19:49 100 01/22/25 19:49 115 H 01/22/25 19:46 98 H 01/22/25 19:46 102/54 L 01/22/25 19:44 100 01/22/25 19:44 93 H 01/22/25 19:40 86 01/22/25 19:40 91/52 L 01/22/25 19:39 100 01/22/25 19:39 81 01/22/25 19:36 76 01/22/25 19:36 80/46 L 01/22/25 19:34 100 01/22/25 19:34 112 H 01/22/25 19:34 86/49 L 01/22/25 19:33 113 H 01/22/25 19:33 123/56 L 01/22/25 19:31 88 L 01/22/25 19:31 115 H 01/22/25 19:29 100 01/22/25 19:29 112 H 01/22/25 19:28 102 H 01/22/25 19:28 132/74 01/22/25 19:24 100 01/22/25 19:24 94 H 01/22/25 19:19 100 01/22/25 19:19 91 H 01/22/25 19:16 90 01/22/25 19:16 125/77 01/22/25 19:14 100 01/22/25 19:14 103 H 01/22/25 19:10 16 01/22/25 19:10 99.0 F 16 01/22/25 19:09 100 01/22/25 19:09 85 O2 Del Method 01/23/25 06:48 01/23/25 06:00 Room Air 01/23/25 04:00 01/23/25 02:00 01/23/25 01:55 Room Air 01/23/25 01:29 01/23/25 01:25 01/23/25 01:20 01/23/25 01:15 01/23/25 01:14 01/23/25 01:10 01/23/25 01:05 01/23/25 01:00 01/23/25 00:59 01/23/25 00:55 01/23/25 00:50 01/23/25 00:45 01/23/25 00:44 01/23/25 00:40 01/23/25 00:35 01/23/25 00:34 01/23/25 00:30 01/23/25 00:29 01/23/25 00:26 01/23/25 00:25 01/23/25 00:20 01/23/25 00:15 01/23/25 00:13 01/23/25 00:10 01/23/25 00:07 01/23/25 00:06 01/23/25 00:05 01/23/25 00:00 01/22/25 23:57 01/22/25 23:57 01/22/25 23:55 01/22/25 23:55 01/22/25 23:50 01/22/25 23:50 01/22/25 23:49 01/22/25 23:49 01/22/25 23:47 01/22/25 23:47 01/22/25 23:45 01/22/25 23:45 01/22/25 23:40 01/22/25 23:40 01/22/25 23:37 01/22/25 23:37 01/22/25 23:37 01/22/25 23:35 01/22/25 23:35 01/22/25 23:30 01/22/25 23:30 01/22/25 23:25 01/22/25 23:25 01/22/25 23:20 01/22/25 23:20 01/22/25 23:16 01/22/25 23:16 01/22/25 23:15 01/22/25 23:15 01/22/25 23:10 01/22/25 23:10 01/22/25 23:07 01/22/25 23:07 01/22/25 23:05 01/22/25 23:05 01/22/25 22:09 01/22/25 22:09 01/22/25 22:09 01/22/25 22:07 01/22/25 22:07 01/22/25 22:04 01/22/25 22:04 01/22/25 22:03 01/22/25 22:03 01/22/25 22:02 01/22/25 22:02 01/22/25 22:00 01/22/25 22:00 01/22/25 21:59 01/22/25 21:59 01/22/25 21:57 01/22/25 21:57 01/22/25 21:54 01/22/25 21:54 01/22/25 21:49 01/22/25 21:49 01/22/25 21:44 01/22/25 21:44 01/22/25 21:40 01/22/25 21:40 01/22/25 21:40 01/22/25 21:39 01/22/25 21:39 01/22/25 21:34 01/22/25 21:34 01/22/25 21:29 01/22/25 21:29 01/22/25 21:26 01/22/25 21:26 01/22/25 21:24 01/22/25 21:24 01/22/25 21:19 01/22/25 21:19 01/22/25 21:15 01/22/25 21:15 01/22/25 21:14 01/22/25 21:14 01/22/25 21:12 01/22/25 21:12 01/22/25 21:09 01/22/25 21:09 01/22/25 21:09 01/22/25 21:04 01/22/25 21:04 01/22/25 20:59 01/22/25 20:59 01/22/25 20:54 01/22/25 20:54 01/22/25 20:52 01/22/25 20:52 01/22/25 20:51 01/22/25 20:49 01/22/25 20:49 01/22/25 20:45 01/22/25 20:45 01/22/25 20:44 01/22/25 20:44 01/22/25 20:41 01/22/25 20:41 01/22/25 20:39 01/22/25 20:39 01/22/25 20:35 01/22/25 20:35 01/22/25 20:34 01/22/25 20:34 01/22/25 20:30 01/22/25 20:30 01/22/25 20:29 01/22/25 20:29 01/22/25 20:26 01/22/25 20:26 01/22/25 20:24 01/22/25 20:24 01/22/25 20:22 01/22/25 20:22 01/22/25 20:19 01/22/25 20:19 01/22/25 20:18 01/22/25 20:18 01/22/25 20:15 01/22/25 20:15 01/22/25 20:14 01/22/25 20:14 01/22/25 20:12 01/22/25 20:12 01/22/25 20:12 01/22/25 20:12 01/22/25 20:09 01/22/25 20:09 01/22/25 20:06 01/22/25 20:06 01/22/25 20:04 01/22/25 20:04 01/22/25 20:03 01/22/25 20:03 01/22/25 20:00 01/22/25 20:00 01/22/25 19:59 01/22/25 19:59 01/22/25 19:57 01/22/25 19:57 01/22/25 19:57 01/22/25 19:57 01/22/25 19:54 01/22/25 19:54 01/22/25 19:52 01/22/25 19:52 01/22/25 19:51 01/22/25 19:51 01/22/25 19:51 01/22/25 19:49 01/22/25 19:49 01/22/25 19:46 01/22/25 19:46 01/22/25 19:44 01/22/25 19:44 01/22/25 19:40 01/22/25 19:40 01/22/25 19:39 01/22/25 19:39 01/22/25 19:36 01/22/25 19:36 01/22/25 19:34 01/22/25 19:34 01/22/25 19:34 01/22/25 19:33 01/22/25 19:33 01/22/25 19:31 01/22/25 19:31 01/22/25 19:29 01/22/25 19:29 01/22/25 19:28 01/22/25 19:28 01/22/25 19:24 01/22/25 19:24 01/22/25 19:19 01/22/25 19:19 01/22/25 19:16 01/22/25 19:16 01/22/25 19:14 01/22/25 19:14 01/22/25 19:10 01/22/25 19:10 01/22/25 19:09 01/22/25 19:09
[2025-01-23] MEDS: SIMETHICONE 80 MG CHEW PO SCH (08:40)
[2025-01-23] MEDS: PRENATAL VITAMIN 1 TAB PO SCH (08:40)
[2025-01-23] MEDS: DOCUSATE SODIUM 100 MG CAP PO SCH (08:40)
[2025-01-23] MEDS: FERROUS SULFATE 325 MG TAB PO SCH (08:40)
[2025-01-23] MEDS ORDERED: Nursing to Pharmacy Communication SCH (09:30)
[2025-01-23] MEDS: NALOXONE HCL 0.08 MG in SYRINGE 1.8 ML IV PRN (14:26)
[2025-01-23] MEDS ORDERED: ONDANSETRON INJ 2 MG/ML 2 ML VIAL IV PRN (16:52)
[2025-01-23] MEDS ORDERED: diphenhydrAMINE Capsule 25 MG CAP PO PRN (16:52)
[2025-01-23] MEDS ORDERED: diphenhydrAMINE 50 MG/ML VIAL IV PRN (16:52)
[2025-01-23] MEDS ORDERED: HYDROmorphone INJ 0.5 MG/0.5 ML SYR IV PRN (16:52)
[2025-01-23] MEDS ORDERED: PROMETHAZINE 12.5 MG/50.5 ML BAG IV PRN (16:52)
[2025-01-23] MEDS ORDERED: KETOROLAC 30 MG/ML VIAL IV PRN (23:00)
[2025-01-24] MEDS: IBUPROFEN 600 MG TAB PO SCH (00:30)
[2025-01-24 07:24] LABS: Hematocrit (blood only) 28.4 % (37.0-47.0); Hemoglobin 9.8 g/dl (12.0-16.0)
--- NOTE | 2025-01-24 07:32 | Obstetrical Progress Note ---
Date of Service January 24, 2025 Assessment & Plan (1) state: Plan Overall doing well. Routine pp/po care. Day #:: 1 Subjective Ambulation: ambulating normally Voiding: no voiding problems Passing Gas:: Yes Diet Tolerance:: regular diet Lochia:: Small Feeding Type:: breast feeding Notes her belly feels sore and tight. Notes pain meds are effective. Physical Exam Constitutional WD/WN, vitals as above Respiratory normal respiratory effort, lungs clear to auscultation Cardiovascular RRR, no murmur, no edema Gastrointestinal (Abdomen) soft, nt, nd ff/appro tender at u incision--c/d/i Psychiatric A+Ox3, euthymic affect Results & Data Vital Signs (Past 12 Hours) Vital Signs Temp Pulse Resp BP Pulse Ox O2 Del Method 01/24/25 00:30 36.6 C 75 18 123/87 99 Room Air 01/23/25 20:30 36.7 C 77 16 108/71 96 Room Air
[2025-01-24] MEDS ORDERED: HYDROmorphone INJ 0.5 MG/0.5 ML SYR IV PRN (16:52)
[2025-01-24] MEDS: IBUPROFEN 600 MG TAB PO PRN (23:40)
[2025-01-25] MEDS: ACETAMINOPHEN 325 MG TAB PO PRN (06:35)
--- NOTE | 2025-01-25 09:17 | Obstetrical Progress Note ---
Date of Service January 25, 2025 Assessment & Plan (1) state: [age] yo G1P POD 3 from primary CS, doing well -Meeting all pp milestones -O+/rubella immune -f/u 6 weeks for appt. Baby under bili lights currently so likely won't be dc'd today, so will stay until POD4 Subjective Ambulation: ambulating normally Voiding: no voiding problems Passing Gas:: Yes Diet Tolerance:: regular diet Lochia:: Small Pain well managed with medication Review of Systems Denies fevers, chills, n/v, SOTO, CP, SOB Physical Exam Constitutional WD/WN, vitals as above no acute distress Respiratory normal respiratory effort, lungs clear to auscultation Cardiovascular RRR, no murmur, no edema Gastrointestinal (Abdomen) Percussion/Palpation: abdomen soft; abdomen nontender fundus firm at umbilicus and NT, incision c/d/i Musculoskeletal BLE symmetric, nonerythematous, nontender Results & Data Vital Signs (Past 12 Hours) Vital Signs Temp Pulse Resp BP Pulse Ox O2 Del Method 01/24/25 23:30 97.9 F 75 18 114/75 97 Room Air
[2025-01-25 21:55] VITALS: RESP 18
[2025-01-26 00:28] VITALS: BP 127/79; O2SAT 99
[2025-01-26 07:13] VITALS: PULSE 78; TEMP 97.9
--- NOTE | 2025-01-26 07:41 | Obstetrical Progress Note ---
Date of Service January 26, 2025 Assessment & Plan (1) state: [age] yo G1P POD 4 from primary CS, doing well -Meeting all pp milestones -O+/rubella immune -f/u 6 weeks for appt. Baby improving, will be dc to home vs nesting Subjective Ambulation: ambulating normally Voiding: no voiding problems Passing Gas:: Yes Diet Tolerance:: regular diet Lochia:: Small Pain well managed with medication Review of Systems Denies fevers, chills, n/v, SOTO, CP, SOB Physical Exam Constitutional WD/WN, vitals as above no acute distress Respiratory normal respiratory effort, lungs clear to auscultation Cardiovascular RRR, no murmur, no edema Gastrointestinal (Abdomen) Percussion/Palpation: abdomen soft; abdomen nontender fundus firm at umbilicus and NT, incision c/d/i Musculoskeletal BLE symmetric, nonerythematous, nontender Results & Data Vital Signs (Past 12 Hours) Vital Signs Temp Pulse Resp BP Pulse Ox O2 Del Method 01/26/25 07:12 97.9 F 78 18 127/79 99 Room Air 01/25/25 23:59 97.5 F L 65 18 127/79 99 Room Air 01/25/25 20:49 97.5 F L 69 18 124/80 100 Room Air
--- NOTE | 2025-01-28 07:53 | Discharge Summary ---
Date of Service January 28, 2025 Admission Exam (Per Admitting) Constitutional WD/WN, vitals as above Eyes PERRL, conjunctivae normal, anicteric sclerae Neck normal visual inspection Respiratory normal respiratory effort and able to speak in complete sentences; no respiratory distress and no labored breathing Cardiovascular Rate/Rhythm: regular rate and regular rhythm Extremities: no edema Chest (Breasts) Chest: normal inspection of chest Gastrointestinal (Abdomen) Inspection/Auscultation: abdomen normal to inspection Psychiatric A+Ox3, euthymic affect Genitourinary OB Exam Abdomen: + fundal height Discharge Data Consultations 01/22/25 10:06 Consult Anesthesiology Stat Procedures Performed Operation Date: 01/22/25 22:00 Actual Procedures p Section in LD - Tonia Marsh MD Hospital Course (1) state: [age] yo G1P POD 4 from primary CS, doing well -Meeting all pp milestones -O+/rubella immune -f/u 6 weeks for appt. Baby improving, will be dc to home vs nesting Coding Level of Care Code 44422 IN/OBS DISCH 30 MIN/LESS Diagnoses state Z39.2
== END 2025-01-26 11:30 | disposition home or self-care (01) | DRG 786 ==
LOC: 4S1 09:18 → 4E2 01-23 02:43
DX: O74.6 Other complications of spinal and epidural anesthesia during labor and delivery; I95.2 Hypotension due to drugs; Z37.0 Single live birth; O41.1230 Chorioamnionitis, third trimester, not applicable or unspecified; O99.824 Streptococcus B carrier state complicating childbirth; Z3A.39 39 weeks gestation of pregnancy; Z79.899 Other long term (current) drug therapy; O62.8 Other abnormalities of forces of labor; O76 Abnormality in fetal heart rate and rhythm complicating labor and delivery